=== PATIENT | male | born 1965 | race Native Hawaiian/Other Pacific Islander ===

== ENCOUNTER 2021-12-04 10:41 | Outpatient (CLI) | payer BC ==
--- NOTE | 2021-12-04 12:31 | XRAY Report ---
PROCEDURE: Hand 3 View BILAT INDICATIONS: BILATERAL HAND PX TECHNIQUE: 3 views of the bilateral hand(s) acquired. COMPARISON: None FINDINGS: Bones: No fractures or dislocations. No suspicious bony lesions. There is degenerative arthritis a t multiple sites. On the left, there is second DIP degenerative joint space loss and osteophytosis. T here is a flexion deformity of the PIP joint of the small finger. There is mild first carpometacarpal joint degenerative change. On the left, there is first carpometacarpal joint degenerative change, fi rst IP joint degenerative change, and second, third, and fifth DIP joint degenerative change. Soft tissues: No suspicious soft tissue calcifications. IMPRESSION: Degenerative arthritis of the bilateral hands. Reviewed by: Jessee Lopez MD on 12/04/2021 12:30 PM [facility] Approved by: Jessee Lopez MD on 12/04/2021 12:30 PM [facility] Station ID: [id number]
== END 2021-12-04 10:42 | disposition home or self-care (01) ==
LOC: DI.N 10:41
PROVIDERS: ATTEND Physician Assistant
DX: M19.042 Primary osteoarthritis, left hand (principal); M19.041 Primary osteoarthritis, right hand